=== PATIENT | female | born 1995 | race Caucasian/White ===

== ENCOUNTER 2017-06-21 15:24 | Emergency (ER) | payer BC ==
[~2017-06-21] VITALS: Ht 170.2 cm; Wt 91.5 kg
[~2017-06-21 15:24] MED LIST: BCPILLS PO; ESCI10TA17 PO; IBUP-1050 PO
[2017-06-21 15:38] VITALS: TEMP 36.8; Ht 170.2 cm; Wt 91.5 kg
[2017-06-21] MEDS ORDERED: ESCI1TAB10 PO (15:54)
[2017-06-21] MEDS ORDERED: POLY150C PO (15:55)
[2017-06-21 16:02] VITALS: O2SAT 99
--- NOTE | 2017-06-21 16:32 | DIAGNOSTIC IMAGING REPORT ---
CHEST ONE VIEW PORTABLE CLINICAL HISTORY: Atypical chest pain COMPARISON STUDY: 07/08/2016 FINDINGS: The cardiac and mediastinal contours are normal. There is no evidence of focal pulmonary consolidation. There is no evidence of failure. No pleural effusions are visualized.[ IMPRESSION: No active disease in the chest. Electronically signed by: Laci Rodriguez M.D. 06/21/2017 4:30 PM Dictated Date/Time: 06/21/2017 4:30 PM
[2017-06-21 16:35] LABS: BASO % 0.2 %; BASO ABS # 0.01 K/uL (0-0.2); COMPLETE YES; HEMATOCRIT 43.7 % (37-47); IG% 0.2 %; LYMPH % 24.6 %; MEAN CELL VOLUME 83.7 fL (80-100); MEAN CORPUSCULAR HEMOGLOBIN 28.4 pg (25-34); MEAN CORPUSCULAR HGB CONC 33.9 g/dl (32-36); MEAN PLATELET VOLUME 9.2 fL (7.4-10.4); MONO % 6.2 %; NEUT % 67.8 %; PLATELET COUNT 201 K/uL (130-400); RED BLOOD COUNT 5.22 M/uL (4.2-5.4)
[2017-06-21 16:45] LABS: POINT OF CARE TROPONIN I < 0.030 ng/ml (0-0.045)
[2017-06-21 16:52] LABS: ALT/SGPT 35 U/L (12-78); AST/SGOT 15 U/L (15-37); BLOOD UREA NITROGEN 10 mg/dl (7-18); BUN/CREATININE RATIO 14.8 (10-20); CALCIUM 9.4 mg/dl (8.5-10.1); CARBON DIOXIDE 27 mmol/L (21-32); CHLORIDE 107 mmol/L (98-107); CREATININE 0.65 mg/dl (0.60-1.20); GLUCOSE 81 mg/dl (70-99); POTASSIUM 3.6 mmol/L (3.5-5.1); SODIUM 142 mmol/L (136-145)
[2017-06-21 16:54] LABS: ALKALINE PHOSPHATASE 54 U/L (45-117)
[2017-06-21 17:07] LABS: PREG INTERNAL NEGATIVE QC NEG CLEAR BACKGROUND; PREG INTERNAL POSITIVE QC POS CONTROL LINE
[2017-06-21 18:23] VITALS: BP 113/69; PULSE 77; O2SAT 100
--- NOTE | 2017-06-21 22:55 | EMERGENCY ROOM VISIT NOTE ---
History Report prepared by Stefani: Hao Evans Under the Supervision of: Dr. Ney Deal M.D. First contact with patient: 15:47 Chief Complaint: BACK PAIN Stated Complaint: BACK PAIN, WHILE BREATHING PAIN UNDER RIB LT SIDE History of Present Illness The patient is a 21 year old female who presents to the Emergency Room with complaints of left sided rib pain that began 5 days ago. She rates her pain a 2/ 10 in severity. When her pain began, she was evaluated at [facility]. They believed she may have a UTI, so they took a urine sample which was negative. Her pain persisted throughout the next days and she then began to experience pain to her left posterior ribs when she breathes. The only time she had back pain similar to her current symptoms was 2 years ago. At that time, she had just gotten over pneumonia and had some associated pleurisy. She notes a mild cough as well. She denies any family history or recent travels over a couple of hours. She also has a past history of iron deficiency. She currently takes iron supplements and Lexapro 20 mg PO. She stopped taking control 2 weeks ago because she is switching to a different one. Pt denies LOC, headache, fevers, chills, diaphoresis, visual changes, neck pain, breathing difficulties, nausea, vomiting , abdominal pain, melena, hematochezia, urinary symptoms, numbness, weakness, lymphadenopathy, rash, or other complaints. Source of History: patient Onset: 5 days ago Position: other (Left sided ribs) Symptom Intensity: 2/10 Quality: ache Timing: constant Modifying Factors (Worsening): breathing Associated Symptoms: + cough, + back pain Review of Systems See HPI for pertinent positives and negatives. A total of ten systems were reviewed and were otherwise negative. Past Medical & Surgical Medical Problems: (1) Anemia (2) Pneumonia Surgical Problems: (1) S/P tonsillectomy (2) S/P wisdom tooth extraction Family History No pertinent family history Social History Smoking Status: Never Smoker Smokeless Tobacco Use: No Alcohol Use: occasionally Drug Use: none Marital Status: single Housing Status: lives with roommate Occupation Status: [employer] student Current/Historical Medications Scheduled Escitalopram Oxalate (Lexapro), 20 MG PO DAILY Polysaccharide Iron Complex (Nu-Iron 150), 150 MG PO DAILY Allergies Coded Allergies: No Known Allergies (Unverified , 07/08/16) Physical Exam Vital Signs Date Time Temp Pulse Resp B/P (MAP) Pulse Ox O2 Delivery O2 Flow Rate FiO2 06/21/17 18:23 77 18 113/69 100 06/21/17 16:02 99 Room Air 06/21/17 15:38 36.8 83 18 134/81 99 Room Air Physical Exam GENERAL: Awake, alert, well-appearing, in no distress HENT: Normocephalic, atraumatic. Oropharynx unremarkable. EYES: Normal conjunctiva. Sclera non-icteric. NECK: Supple. No nuchal rigidity. FROM. No JVD. RESPIRATORY: Clear to auscultation. CARDIAC: Regular rate, normal rhythm. Extremities warm and well perfused. Pulses equal. ABDOMEN: Soft, non-distended. No tenderness to palpation. No rebound or guarding. No masses. RECTAL: Deferred. MUSCULOSKELETAL: Chest examination reveals left sided tenderness. The back is symmetrical on inspection without obvious abnormality. There is no CVA tenderness to palpation. No joint edema. LOWER EXTREMITIES: Calves are equal size bilaterally and non-tender. No edema. No discoloration. NEURO: Normal sensorium. No sensory or motor deficits noted. SKIN: No rash or jaundice noted. Medical Decision & Procedures ER Provider Diagnostic Interpretation: Radiology results as stated below per my review and radiologist interpretation: CHEST ONE VIEW PORTABLE CLINICAL HISTORY: Atypical chest pain COMPARISON STUDY: 07/08/2016 FINDINGS: The cardiac and mediastinal contours are normal. There is no evidence of focal pulmonary consolidation. There is no evidence of failure. No pleural effusions are visualized.[ IMPRESSION: No active disease in the chest. Electronically signed by: Laci Rodriguez M.D. 06/21/2017 4:30 PM Dictated Date/Time: 06/21/2017 4:30 PM Laboratory Results 06/21/17 16:19 Red Blood Count 5.22, Mean Corpuscular Volume 83.7, Mean Corpuscular Hemoglobin 28.4, Mean Corpuscular Hemoglobin Concent 33.9, Mean Platelet Volume 9.2, Neutrophils (%) (Auto) 67.8, Lymphocytes (%) (Auto) 24.6, Monocytes (%) (Auto) 6.2, Eosinophils (%) (Auto) 1.0, Basophils (%) (Auto) 0.2, Neutrophils # (Auto) 4.14, Lymphocytes # (Auto) 1.50, Monocytes # (Auto) 0.38, Eosinophils # (Auto) 0.06, Basophils # (Auto) 0.01 06/21/17 16:19 Test 06/21/17 16:19 06/21/17 16:27 White Blood Count 6.10 K/uL (4.8-10.8) Red Blood Count 5.22 M/uL (4.2-5.4) Hemoglobin 14.8 g/dL (12.0-16.0) Hematocrit 43.7 % (37-47) Mean Corpuscular Volume 83.7 fL (80-100) Mean Corpuscular Hemoglobin 28.4 pg (25-34) Mean Corpuscular Hemoglobin Concent 33.9 g/dl (32-36) Platelet Count 201 K/uL (130-400) Mean Platelet Volume 9.2 fL (7.4-10.4) Neutrophils (%) (Auto) 67.8 % Lymphocytes (%) (Auto) 24.6 % Monocytes (%) (Auto) 6.2 % Eosinophils (%) (Auto) 1.0 % Basophils (%) (Auto) 0.2 % Neutrophils # (Auto) 4.14 K/uL (1.4-6.5) Lymphocytes # (Auto) 1.50 K/uL (1.2-3.4) Monocytes # (Auto) 0.38 K/uL (0.11-0.59) Eosinophils # (Auto) 0.06 K/uL (0-0.5) Basophils # (Auto) 0.01 K/uL (0-0.2) RDW Standard Deviation 39.3 fL (36.4-46.3) RDW Coefficient of Variation 13.1 % (11.5-14.5) Immature Granulocyte % (Auto) 0.2 % Immature Granulocyte # (Auto) 0.01 K/uL (0.00-0.02) Anion Gap 8.0 mmol/L (3-11) Est Creatinine Clear Calc Drug Dose 160.3 ml/min Estimated GFR () 148.1 Estimated GFR (Non- 127.8 BUN/Creatinine Ratio 14.8 (10-20) Calcium Level 9.4 mg/dl (8.5-10.1) Total Bilirubin 0.3 mg/dl (0.2-1) Direct Bilirubin < 0.1 mg/dl (0-0.2) Aspartate Amino Transf (AST/SGOT) 15 U/L (15-37) Alanine Aminotransferase (ALT/SGPT) 35 U/L (12-78) Alkaline Phosphatase 54 U/L (45-117) Total Protein 7.5 gm/dl (6.4-8.2) Albumin 3.9 gm/dl (3.4-5.0) Lipase 140 U/L (73-393) Human Chorionic Gonadotropin, Qual NEG (NEG) Bedside D-Dimer 205 ng/mlFEU (0-450) Bedside Troponin I < 0.030 ng/ml (0-0.045) Laboratory results reviewed by me ECG Indication: chest pain Rate (beats per minute): 77 Rhythm: normal sinus Findings: no acute ischemic change, no ectopy ED Course 1547: The patient was evaluated in room A12. A complete history and physical exam was performed. 0: I reevaluated the patient. Discussed results and discharge instructions: She verbalized understanding and agreement. The patient is ready for discharge. Medical Decision Triage Nursing notes reviewed. The patient's presentation and history were concerning for left rib/flank pain. Etiologies such as costochondritis, pleurisy, cardiac ischemia, aortic dissection, pulmonary embolism, pneumonia, pneumothorax, musculoskeletal, infections, gastrointestinal, as well as others were entertained. The patient was evaluated. Clinically she was doing well. She had a tender costal margin on the left side. She had a benign abdomen. The patient had blood work obtained. Her ECG was unremarkable. No pericarditis. No evidence of abnormality. Her troponin and d-dimer were negative. A single troponin was done given the duration of symptoms. Her urinalysis was unremarkable. The patient had unremarkable labs otherwise. I suspect that this is chest wall pain. She has reproducible tenderness in the costal margin. Costochondritis would be unlikely diagnosis. I discussed conservative management with the patient. She will rest. NSAIDs were instructed. The patient declined any analgesia here. I gave my usual and customary discussion regarding this issue. Medication Reconcilliation Current Medication List: was personally reviewed by me Blood Pressure Screening Patient's blood pressure: Normal blood pressure Blood pressure disposition: Did not require urgent referral Impression Primary Impression: Left sided chest pain Scribe Attestation The scribe's documentation has been prepared under my direction and personally reviewed by me in its entirety. I confirm that the note above accurately reflects all work, treatment, procedures, and medical decision making performed by me. Departure Information Dispostion Home / Self-Care Referrals [facility] HOME CARE DOCUMENTATION FORM, IMPORTANT VISIT INFORMATION Patient Instructions My [facility] Additional Instructions CHEST PAIN INSTRUCTIONS: Ibuprofen(Motrin, Advil) may be used for fever or pain. Use 600mg every six hours as needed. Take with food. Avoid using more than 2400mg in a 24 hour period. Do not use 2400mg per day for more than 5 consecutive days without physician direction. Prolonged inappropriate use can lead to stomach upset or ulcers. (AND/OR) Acetaminophen(Tylenol) may be used for fever or pain. Use 1000mg every six hours as needed. Avoid using more than 4000mg in a 24 hour period. Warm compresses for 20 minutes at a time four times daily for 2-3 days. Rest and drink plenty of fluids as tolerated. Continue current medications. Avoid strenuous activities and anything that worsens your pain. Resume normal activities once your symptoms resolve. Return to the ER immediately for worsening or persistent chest pain, abdominal pain, vomiting, fevers, chest pains, difficulty breathing, worsening of your condition, or as needed. Follow up with your primary physician in 2-3 days for a recheck of your current condition.
== END 2017-06-21 18:24 | disposition home or self-care (01) ==
LOC: C.EDB 15:27 → C.EDA 18:24
DX: R07.89 Other chest pain (principal); D64.9 Anemia, unspecified; Z79.899 Other long term (current) drug therapy; Z98.890 Other specified postprocedural states

== ENCOUNTER 2017-06-29 05:40 | Emergency (ER) | payer BC ==
[~2017-06-29] VITALS: Ht 170.2 cm; Wt 102.4 kg
[~2017-06-29 05:40] MED LIST changes: -BCPILLS PO; -ESCI10TA17 PO; +ESCI1TAB10 PO; -IBUP-1050 PO; +POLY150C PO
[2017-06-29 05:45] VITALS: TEMP 36.9; O2SAT 95; Ht 170.2 cm; Wt 102.4 kg
[2017-06-29] MEDS ORDERED: SODIUM CHLORIDE 0.9% 1000ML 1,000 ML IV STA (05:51)
--- NOTE | 2017-06-29 05:58 | EMERGENCY ROOM VISIT NOTE ---
History Report prepared by Stefani: Neelam Aldrich Under the Supervision of: Dr. Cele Laws D.O. First contact with patient: 05:48 Chief Complaint: syncope History of Present Illness The patient is a 21 year old female who presents to the Emergency Room with complaints of sudden syncopal episodes occurring shortly prior to arrival. The patient states that she developed a sore throat around 2300 last night. She then states that she became febrile at 0030, but then felt better around 0300. The patient reports that she slept for two hours then woke up around 0500 and felt like she was hyperventilating. She states that she has had a panic attack before, but that her symptoms did not feel like a panic attack. The patient reports that she started to lose hearing, had blurry vision, and then collapsed. She states that this woke her roommates up. She states that she blacked out for a couple of seconds and then tried to get her roommate, and ended up passing out again. The patient denies hitting her head both times. She states that she has not passed out before. The patient reports that her last normal menstrual period was around May 30. She states that she was anemic but is not anymore. She reports that she has been around her one roommate who has had a cough. Source of History: patient Onset: shortly prior to arrival Position: other (global) Quality: other (syncopal episodes ) Timing: other (sudden) Associated Symptoms: + fevers, + sorethroat Note: additional symptoms: losing hearing, blurry vision Review of Systems See HPI for pertinent positives & negatives. A total of 10 systems reviewed and were otherwise negative. Past Medical & Surgical Medical Problems: (1) Anemia (2) Pneumonia Surgical Problems: (1) S/P tonsillectomy (2) S/P wisdom tooth extraction Family History No pertinent family history Social History Smoking Status: Never Smoker Alcohol Use: occasionally Drug Use: none Marital Status: single Housing Status: lives with roommate Occupation Status: [employer] student Current/Historical Medications Scheduled Doxycycline Monohydrate (Monodox), 100 MG PO BID Escitalopram Oxalate (Lexapro), 20 MG PO DAILY Polysaccharide Iron Complex (Nu-Iron 150), 150 MG PO DAILY Scheduled PRN Ibuprofen (Advil), 400 MG PO Q4 PRN for Pain or Fever Pseudoephedrine (Sudafed), 30 MG PO UD PRN for Nasal Congestion Allergies Coded Allergies: No Known Allergies (Unverified , 06/29/17) Physical Exam Vital Signs Date Time Temp Pulse Resp B/P (MAP) Pulse Ox O2 Delivery O2 Flow Rate FiO2 06/29/17 06:06 78 105/70 98 Room Air 87 114/73 113 114/75 06/29/17 05:49 85 06/29/17 05:45 36.9 82 16 99/72 99 Room Air 06/29/17 05:45 95 Room Air Physical Exam HEENT: Head - normocephalic and atraumatic Pupils are equal, round, and reactive to light. Extraocular eye muscles are intact, and sclera are anicteric. Nose - moist nasal mucosa without discharge. Mouth - moist buccal mucosa. Oropharynx is nonerythematous and there is no tonsillar exudate or edema noted. Neck: Supple; no JVD, nuchal rigidity, cervical lymphadenopathy. Heart: Regular rate and rhythm. There is a normal S1 and S2 with no murmurs, clicks, or gallops appreciated. Lungs: Clear to auscultation bilaterally with no wheezes, rales, or rhonchi. Abdomen: Soft, completely nontender, nondistended, with good bowel sounds. There are no palpable pulsatile masses or hepatosplenomegaly. There is no guarding, rigidity, or rebound noted. Extremities: No evidence of cyanosis, clubbing, or edema. There are easily palpable peripheral pulses. Skin: warm and dry with good turgor and no rashes. Medical Decision & Procedures ER Provider Diagnostic Interpretation: Radiology results as stated below per my review and the radiologist's interpretation: CHEST ONE VIEW PORTABLE CLINICAL HISTORY: cough dyspnea COMPARISON STUDY: 06/21/2017 FINDINGS: Developing somewhat poorly defined parenchymal infiltrate right base. Pulmonary apices are clear. Diaphragms smooth. No evidence for cardiac enlargement. IMPRESSION: Developing infiltrate right base The above report was generated using voice recognition software. It may contain grammatical, syntax or spelling errors. Electronically signed by: Zeke Hilario M.D. 06/29/2017 6:23 AM Dictated Date/Time: 06/29/2017 6:23 AM Laboratory Results 06/29/17 06:09 Red Blood Count 4.98, Mean Corpuscular Volume 83.7, Mean Corpuscular Hemoglobin 28.3, Mean Corpuscular Hemoglobin Concent 33.8, Mean Platelet Volume 9.2, Neutrophils (%) (Auto) 79.9, Lymphocytes (%) (Auto) 11.9, Monocytes (%) (Auto) 7.2, Eosinophils (%) (Auto) 0.6, Basophils (%) (Auto) 0.1, Neutrophils # (Auto) 9.17, Lymphocytes # (Auto) 1.36, Monocytes # (Auto) 0.83, Eosinophils # (Auto) 0.07, Basophils # (Auto) 0.01 06/29/17 06:09 Test 06/29/17 06:05 06/29/17 06:09 White Blood Count 11.47 K/uL (4.8-10.8) Red Blood Count 4.98 M/uL (4.2-5.4) Hemoglobin 14.1 g/dL (12.0-16.0) Hematocrit 41.7 % (37-47) Mean Corpuscular Volume 83.7 fL (80-100) Mean Corpuscular Hemoglobin 28.3 pg (25-34) Mean Corpuscular Hemoglobin Concent 33.8 g/dl (32-36) Platelet Count 172 K/uL (130-400) Mean Platelet Volume 9.2 fL (7.4-10.4) Neutrophils (%) (Auto) 79.9 % Lymphocytes (%) (Auto) 11.9 % Monocytes (%) (Auto) 7.2 % Eosinophils (%) (Auto) 0.6 % Basophils (%) (Auto) 0.1 % Neutrophils # (Auto) 9.17 K/uL (1.4-6.5) Lymphocytes # (Auto) 1.36 K/uL (1.2-3.4) Monocytes # (Auto) 0.83 K/uL (0.11-0.59) Eosinophils # (Auto) 0.07 K/uL (0-0.5) Basophils # (Auto) 0.01 K/uL (0-0.2) RDW Standard Deviation 39.7 fL (36.4-46.3) RDW Coefficient of Variation 13.2 % (11.5-14.5) Immature Granulocyte % (Auto) 0.3 % Immature Granulocyte # (Auto) 0.03 K/uL (0.00-0.02) Anion Gap 9.0 mmol/L (3-11) Est Creatinine Clear Calc Drug Dose 145.3 ml/min Estimated GFR () 130.9 Estimated GFR (Non- 112.9 BUN/Creatinine Ratio 15.0 (10-20) Calcium Level 9.0 mg/dl (8.5-10.1) Total Bilirubin 0.5 mg/dl (0.2-1) Direct Bilirubin 0.1 mg/dl (0-0.2) Aspartate Amino Transf (AST/SGOT) 12 U/L (15-37) Alanine Aminotransferase (ALT/SGPT) 35 U/L (12-78) Alkaline Phosphatase 47 U/L (45-117) Total Protein 7.3 gm/dl (6.4-8.2) Albumin 3.8 gm/dl (3.4-5.0) Laboratory results per my review. Medications Administered Medications (Trade) Dose Ordered Sig/Dalia Route Start Time Stop Time Status Last Admin Dose Admin Sodium Chloride 1,000 ml @ 999 mls/hr Q1H1M STAT IV 06/29/17 05:51 06/29/17 06:51 06/29/17 06:15 999 MLS/HR Procedure Medications ordered: Sodium Chloride IV. Oral doxycycline ECG Indication: syncope Rate (beats per minute): 79 Rhythm: normal sinus Findings: no acute ischemic change, no ectopy Change: no significant change (from June 21, 2017) ED Course 0546: Past medical records reviewed. The patient was evaluated in room A3. A complete history and physical exam was performed. Laboratory studies were drawn as above. The patient had a chest x-ray as described above. 0551: Ordered Sodium Chloride 1,000 ml @ 999 mls/hr IV. 0553: Orthostatic vital signs were done. The patient's blood pressure was stable but her heart rate went up by 35 points upon standing. She received IV crystalloid therapy and was able to drink clear liquids. 0640: I discussed the results of the chest x-ray and labs with the patient. She was given an initial dose of doxycycline here in the emergency department she'll be discharged home with a prescription. I've asked patient to follow-up with [facility] in 2 weeks to have her chest x-ray repeated for clearing. If symptoms worsen, she should return to the emergency department or follow-up with [facility] Medical Decision The patient is a 21 year old female who presents to the ED with syncope. Differential diagnosis includes cough, syncope, dehydration, anxiety, and hyperventilation. Lab results are as follows: White count 11.4 stable H and H Normal renal function Liliya glucose Normal LFTs Chest x-ray showed evidence of a right-sided pneumonia. O2 saturations are stable. The patient will be treated with oral doxycycline. She was encouraged to keep herself hydrated and follow-up with [facility]. Medication Reconcilliation Current Medication List: was personally reviewed by me Blood Pressure Screening Patient's blood pressure: Normal blood pressure Impression Primary Impression: Syncope Additional Impression: Right lower lobe pneumonia Scribe Attestation The scribe's documentation has been prepared under my direction and personally reviewed by me in its entirety. I confirm that the note above accurately reflects all work, treatment, procedures, and medical decision making performed by me. Departure Information Prescriptions Doxycycline Monohydrate (Monodox) 100 Mg Cap 100 MG PO BID for 7 Days, #14 CAP Prov: Cele Laws D.O. 06/29/17 Referrals [facility] (PCP) Problem Qualifiers Primary Impression: Syncope Syncope type: vasovagal syncope Qualified Codes: R55 - Syncope and collapse Additional Impression: Right lower lobe pneumonia Pneumonia type: due to unspecified organism Qualified Codes: J18.1 - Lobar pneumonia, unspecified organism
[2017-06-29] MEDS ORDERED: IBUP-1050 PO (06:10)
[2017-06-29] MEDS ORDERED: PSEU30TA20 PO (06:10)
[2017-06-29 06:21] LABS: BASO % 0.1 %; BASO ABS # 0.01 K/uL (0-0.2); COMPLETE YES; EOS % 0.6 %; HEMATOCRIT 41.7 % (37-47); IG% 0.3 %; LYMPH % 11.9 %; LYMPH ABS # 1.36 K/uL (1.2-3.4); MEAN CELL VOLUME 83.7 fL (80-100); MEAN CORPUSCULAR HEMOGLOBIN 28.3 pg (25-34); MEAN CORPUSCULAR HGB CONC 33.8 g/dl (32-36); MEAN PLATELET VOLUME 9.2 fL (7.4-10.4); MONO % 7.2 %; NEUT % 79.9 %; PLATELET COUNT 172 K/uL (130-400); RED BLOOD COUNT 4.98 M/uL (4.2-5.4); WHITE BLOOD COUNT 11.47 K/uL (4.8-10.8)
--- NOTE | 2017-06-29 06:24 | DIAGNOSTIC IMAGING REPORT ---
CHEST ONE VIEW PORTABLE CLINICAL HISTORY: cough dyspnea COMPARISON STUDY: 06/21/2017 FINDINGS: Developing somewhat poorly defined parenchymal infiltrate right base. Pulmonary apices are clear. Diaphragms smooth. No evidence for cardiac enlargement. IMPRESSION: Developing infiltrate right base The above report was generated using voice recognition software. It may contain grammatical, syntax or spelling errors. Electronically signed by: Zeke Hilario M.D. 06/29/2017 6:23 AM Dictated Date/Time: 06/29/2017 6:23 AM
[2017-06-29] MEDS ORDERED: AZITHROMYCIN 250 MG TAB PO STA (06:34)
[2017-06-29] MEDS ORDERED: DOXY100C76 PO (06:40)
[2017-06-29 06:44] LABS: CREATININE 0.76 mg/dl (0.60-1.20); POTASSIUM 3.8 mmol/L (3.5-5.1)
[2017-06-29] MEDS ORDERED: DOXYCYCLINE HYCLATE 100 MG CAP PO STA (06:44)
[2017-06-29 06:49] VITALS: BP 113/62; PULSE 81; O2SAT 99
== END 2017-06-29 07:12 | disposition home or self-care (01) ==
LOC: C.EDA 05:47
DX: R55 Syncope and collapse (principal); J18.9 Pneumonia, unspecified organism; Z98.890 Other specified postprocedural states; Z79.899 Other long term (current) drug therapy